=== PATIENT | male | born 1960 | race Caucasian/White ===

== ENCOUNTER → 2019-11-01 16:45 | Outpatient (CLI) | payer MEDICARE, MEDICAID, SELFPAY ==
[2016-09-29 13:24] VITALS: BMI 35.9
--- NOTE | 2019-11-01 16:51 | RAD_ITS ---
STUDY: X-RAY - CERVICAL SPINE REASON FOR EXAM: Male, 59 years old. neck pain TECHNIQUE: 4 view(s) of the cervical spine were obtained. COMPARISON: None FINDINGS: Normal anterior atlantoaxial articulation. Normal odontoid process. Normal cervical lordosis. There are large anterior bridging osteophytes from C5 to C7. Normal disc space heights. The soft tissue structures are unremarkable. RAD/Cerv Spine 2 or 3 Views IMPRESSION: Large anterior bridging osteophytes from C5 to C7 consistent with diffuse idiopathic skeletal hyperostosis. There is no evidence of fracture or subluxation. Disc spacing is preserved. Electronically Signed: Beto Yadav MD at 17:07 EDT , Service support ,
== END ==
PROVIDERS: PCP Internal Medicine; Referring Provider Anesthesiology Pain Medicine; Visit Provider Anesthesiology Pain Medicine
DX: M54.2 Cervicalgia (principal)
CPT/HCPCS: 72040

== ENCOUNTER → 2020-03-17 12:41 | Outpatient (CLI) | payer MEDICARE, MEDICAID, SELFPAY ==
--- NOTE | 2020-03-17 13:00 | MRI_ITS ---
STUDY: MRI CERVICAL SPINE WITHOUT CONTRAST REASON FOR EXAM: Male, 60 years old. Stiff neck neck and ear pain for 4 to 5 years TECHNIQUE: Standardized fat and water weighted pulse sequences were obtained in the sagittal and axial planes. COMPARISON: September 01 2019 FINDINGS: Examination is mildly degraded due to increased image noise related to patient''s large body habitus. Craniocervical junction and cervical spine are intact and aligned with normal marrow and paraspinal soft tissues. BMI is severely elevated. This can be contributory to cervical spinal symptomatology. Thecal sac is patent throughout. Spinal cord is normal in size, shape and signal. Neural foramina are suboptimally evaluated likely with scattered mild and moderate foraminal stenoses. There are expected age-related changes. MRI/Spine Cervical (Routine) IMPRESSION: 1. Patent canal, normal cord. 2. Age-appropriate changes. 3. Elevated BMI. Electronically Signed: Rea Fernandez, at 15:06 EDT Tel , Service support ,
== END ==
PROVIDERS: PCP Internal Medicine; Referring Provider Anesthesiology Pain Medicine; Visit Provider Anesthesiology Pain Medicine
DX: M54.2 Cervicalgia (principal); M79.603 Pain in arm, unspecified
CPT/HCPCS: 72141

== ENCOUNTER 2021-08-31 16:57 | Outpatient (CLI) | payer MEDICARE, MEDICAID, SELFPAY ==
--- NOTE | 2021-08-31 17:30 | MRI_ITS ---
STUDY: MRI CERVICAL SPINE WITHOUT CONTRAST REASON FOR EXAM: Male, 61 years old. Radiculopathy TECHNIQUE: Standardized fat and water weighted pulse sequences were obtained in the sagittal and axial planes. COMPARISON: None FINDINGS: Normal foramen magnum and brainstem-cervical cord junction. Normal craniovertebral junction. Normal anterior atlantoaxial articulation. Normal odontoid process. There is straightening of the normal cervical lordosis. Normal vertebral bodies and posterior osseous elements. The study is limited due to the lack of axial T2-weighted images. However, on the sagittal views there is no evidence of severe spinal stenosis or cord compression. Normal cervical cord. Normal visualized soft tissue structures. MRI/Spine Cervical (Routine) IMPRESSION: Limited study but no severe spinal stenosis or cord compression. Electronically Signed: David Tellez MD at 17:48 EDT ,
== END 2021-08-31 23:59 | disposition home or self-care (01) ==
LOC: MRI 16:58
PROVIDERS: PCP Internal Medicine; Visit Provider Anesthesiology Pain Medicine
DX: M54.12 Radiculopathy, cervical region (principal)
CPT/HCPCS: 72141